=== PATIENT | male | born 1940 | race Caucasian/White ===

== ENCOUNTER 2019-05-04 12:56 | Emergency (ER) | payer MEDICARE, OTHER ==
[2019-05-04] MEDS ORDERED: SODIUM CHLORIDE 0.9% 1000ML 1,000 ML IV ONE (14:02)
== END 2019-05-04 16:15 | disposition short-term general hospital (02) ==
LOC: EDH 12:56
DX: H53.131 Sudden visual loss, right eye (principal)
CPT/HCPCS: 99285; J7030